=== PATIENT | female | born 1950 | race Caucasian/White ===

== ENCOUNTER 2020-05-22 12:49 | Outpatient (REF) | payer MEDICARE, SELFPAY ==
[2020-05-22 13:34] LABS: MANUAL DIFF FLAG NO
[2020-05-22 13:39] LABS: Basophils Percent Auto 0.4 % (0-2); Eosinophils Absolute Auto 0.1 X10*3/uL (0.0-0.4); Eosinophils Percent Auto 1.2 % (0-4); Hematocrit 40.4 % (37-47); Hemoglobin 12.7 g/dl (12.0-16.0); Imm Gran Abs Auto 0.02 X10*3/uL (0.00-0.03); Imm Gran Pct Auto 0.4 % (0.0-0.4); Lymphocytes Absolute Auto 1.6 X10*3/uL (1.2-4.9); Lymphocytes Percent Auto 32.3 % (20-40); Mean Corpuscular HGB Conc 31.4 g/dl (31.0-35.0); Mean Corpuscular Hemoglobin 27.2 pg (27.0-33.0); Mean Corpuscular Volume 86.5 fL (80-98); Mean Platelet Volume 11.3 fL (9.4-12.3); Monocytes Absolute Auto 0.5 X10*3/uL (0.1-1.2); Monocytes Percent Auto 10.3 % (2-11); Neutrophils Absolute Auto 2.7 X10*3/uL (2.0-8.3); Neutrophils Percent Auto 55.4 % (45-73); Platelet Count 253 X10*3/uL (160-400); Red Blood Count 4.67 X10*6/uL (4.20-5.50); Red Cell Distribution Width 12.6 % (11.0-16.0); White Blood Count 4.9 X10*3/uL (4.8-10.8)
[2020-05-22 14:40] LABS: Alanine Aminotransferase 14 U/L (0-31); Albumin Level 4.4 g/dL (3.5-5.0); Alkaline Phosphatase 69 U/L (39-117); Anion Gap 9 (12-20); Aspartate Amino Transferase 15 U/L (5-31); Bilirubin Total 1.1 mg/dL (0.0-1.0); Blood Urea Nitrogen 12 mg/dL (9-16); Calcium 9.1 mg/dL (8.4-10.2); Carbon Dioxide 30 mmol/L (22-29); Chloride 103 mmol/L (96-108); Cholesterol 186 mg/dL; Estimated Glomerular Filt Rate > 60; Glucose Random 87 mg/dL (60-115); HDL Cholesterol 50 mg/dL; LDL Cholesterol Calculated 119 mg/dl; Potassium 4.3 mmol/l (3.3-5.1); Sodium 138 mmol/L (135-145); Total Protein 7.1 g/dL (6.5-8.0); Triglycerides 86 mg/dL
[2020-05-22 14:45] LABS: Thyroid Stimulating Hormone 2.26 mIU/mL (0.32-4.0)
== END 2020-05-22 12:50 | disposition home or self-care (01) ==
LOC: HO.LAB 12:49
PROVIDERS: PCP Internal Medicine; Visit Provider Internal Medicine
DX: E78.00 Pure hypercholesterolemia, unspecified (principal); I10 Essential (primary) hypertension; Z91.14 Patient's other noncompliance with medication regimen
CPT/HCPCS: 36415; 80053; 80061; 84443; 85025

== ENCOUNTER 2020-07-26 10:57 | Outpatient (REF) | payer MEDICARE, SELFPAY ==
--- NOTE | 2020-07-26 | MM_ITS ---
EXAMINATION: MM SCREENING DIGITAL BREAST TOMOSYNTHESIS, BILATERAL CLINICAL INFORMATION: Screening. Asymptomatic. Prior history benign left excisional biopsy 2006. The lifetime risk of breast cancer based on the Tyrer-Cuzick Model is 3%. COMPARISON: Mammography: 07/20/2019, 07/13/2018, 05/24/2017 TECHNIQUE: Digital breast tomosynthesis is performed in both the craniocaudal and mediolateral oblique views along with computer-aided detection (CAD). Synthesized 2D images are generated from the tomosynthesis. FINDINGS: There are scattered areas of fibroglandular density (ACR BI-RADS breast composition Category b). There is old scarring left breast upper outer quadrant similar to prior studies consistent with the remote benign excisional biopsy. Neither breast shows interval mass or developing density or architectural abnormality. No abnormal calcifications. No significant changes from prior studies. MM/MM tomosynthesis screening BI IMPRESSION: 1. No significant changes from prior studies. 2. Stable minor scarring upper outer quadrant left breast. ASSESSMENT: BI-RADS 2: Benign RECOMMENDATION: Routine annual mammography screening. This patient's information was entered into a reminder system with a target due date for their next mammogram.
== END 2020-07-26 10:58 | disposition home or self-care (01) ==
LOC: HO.MAMMO 10:57
PROVIDERS: PCP Internal Medicine; Visit Provider Internal Medicine
DX: Z12.31 Encounter for screening mammogram for malignant neoplasm of breast (principal)
CPT/HCPCS: 77063; 77067

== ENCOUNTER 2020-07-29 17:02 | Outpatient (REF) | payer MEDICARE, SELFPAY | END 2020-07-29 17:03 | disposition home or self-care (01) | LOC: HO.LAB 17:02 | PROVIDERS: Visit Provider Internal Medicine | DX: Z20.828 Contact with and (suspected) exposure to other viral communicable diseases (principal) | CPT/HCPCS: C9803; U0003 ==

== ENCOUNTER 2020-11-15 11:23 | Outpatient (REF) | payer MEDICARE, SELFPAY ==
[2020-11-15 13:02] LABS: Alanine Aminotransferase 17 U/L (0-31); Albumin Level 4.4 g/dL (3.5-5.0); Alkaline Phosphatase 72 U/L (39-117); Anion Gap 11 (12-20); Aspartate Amino Transferase 20 U/L (5-31); Blood Urea Nitrogen 13 mg/dL (9-16); Calcium 9.1 mg/dL (8.4-10.2); Carbon Dioxide 32 mmol/L (22-29); Chloride 100 mmol/L (96-108); Estimated Glomerular Filt Rate > 60; Glucose Random 94 mg/dL (60-115); Potassium 4.2 mmol/L (3.3-5.1); Sodium 139 mmol/L (135-145); Total Protein 7.6 g/dL (6.5-8.0)
== END 2020-11-15 11:24 | disposition home or self-care (01) ==
LOC: HO.LAB 11:23
PROVIDERS: PCP Internal Medicine; Visit Provider Internal Medicine
DX: Z00.00 Encounter for general adult medical examination without abnormal findings (principal); E78.00 Pure hypercholesterolemia, unspecified; I10 Essential (primary) hypertension; M79.671 Pain in right foot
CPT/HCPCS: 36415; 80053

== ENCOUNTER 2020-11-15 11:55 | Outpatient (REF) | payer MEDICARE, SELFPAY ==
[2020-11-15 13:33] LABS: COVID-19 Test Negative (Negative); IDNOW Serial# 55D5AD1C
== END 2020-11-15 11:56 | disposition home or self-care (01) ==
LOC: HO.LAB 11:55
PROVIDERS: Visit Provider Internal Medicine
DX: Z20.822 Contact with and (suspected) exposure to COVID-19 (principal)
CPT/HCPCS: 36415; 87635; C9803

== ENCOUNTER 2020-11-22 13:11 | Outpatient (REF) | payer MEDICARE, SELFPAY ==
[2020-11-22 14:25] LABS: COVID-19 Test Negative (Negative); IDNOW Serial# 55D5AD1C
== END 2020-11-22 13:12 | disposition home or self-care (01) ==
LOC: HO.LAB 13:11
PROVIDERS: Visit Provider Internal Medicine
DX: Z20.822 Contact with and (suspected) exposure to COVID-19 (principal)
CPT/HCPCS: 36415; 87635; C9803

== ENCOUNTER 2020-12-10 15:24 | Outpatient (REF) | payer MEDICARE, SELFPAY ==
[2020-12-10 15:43] LABS: COVID-19 Test Negative (Negative)
== END 2020-12-10 15:25 | disposition home or self-care (01) ==
LOC: HO.LAB 15:24
PROVIDERS: Visit Provider Internal Medicine
DX: Z20.822 Contact with and (suspected) exposure to COVID-19 (principal)
CPT/HCPCS: 36415; 87635; C9803

== ENCOUNTER 2021-06-02 11:27 | Outpatient (REF) | payer MEDICARE, SELFPAY ==
[2021-06-02 11:48] LABS: MANUAL DIFF FLAG NO
[2021-06-02 12:56] LABS: Basophils Percent Auto 0.4 % (0-2); Eosinophils Absolute Auto 0.1 X10*3/uL (0.0-0.4); Eosinophils Percent Auto 1.6 % (0-4); Hematocrit 42.6 % (37-47); Hemoglobin 13.3 g/dl (12.0-16.0); Imm Gran Abs Auto 0.03 X10*3/uL (0.00-0.03); Imm Gran Pct Auto 0.6 % (0.0-0.4); Lymphocytes Absolute Auto 1.4 X10*3/uL (1.2-4.9); Lymphocytes Percent Auto 27.7 % (20-40); Mean Corpuscular HGB Conc 31.2 g/dl (31.0-35.0); Mean Corpuscular Hemoglobin 26.5 pg (27.0-33.0); Mean Platelet Volume 11.9 fL (9.4-12.3); Monocytes Absolute Auto 0.5 X10*3/uL (0.1-1.2); Monocytes Percent Auto 9.2 % (2-11); Neutrophils Absolute Auto 3.1 X10*3/uL (2.0-8.3); Neutrophils Percent Auto 60.5 % (45-73); Platelet Count 262 X10*3/uL (160-400); Red Blood Count 5.01 X10*6/uL (4.20-5.50); Red Cell Distribution Width 12.5 % (11.0-16.0); White Blood Count 5.1 X10*3/uL (4.8-10.8)
[2021-06-02 13:16] LABS: Cholesterol 206 mg/dL; HDL Cholesterol 48 mg/dL; LDL Cholesterol Calculated 141 mg/dl; Triglycerides 87 mg/dL
== END 2021-06-02 11:28 | disposition home or self-care (01) ==
LOC: HO.LAB 11:27
PROVIDERS: PCP Internal Medicine; Visit Provider Internal Medicine
DX: E78.00 Pure hypercholesterolemia, unspecified (principal); I10 Essential (primary) hypertension
CPT/HCPCS: 36415; 80061; 85025

== ENCOUNTER 2021-07-29 11:38 | Outpatient (REF) | payer MEDICARE, SELFPAY ==
--- NOTE | ~2021-07-29 | MM_ITS ---
EXAMINATION: MM SCREENING DIGITAL BREAST TOMOSYNTHESIS, BILATERAL CLINICAL INFORMATION: Screening. Asymptomatic. The lifetime risk of breast cancer based on the Tyrer-Cuzick Model is 2%. COMPARISON: Mammography: 07/26/2020, 07/20/2019, 07/13/2018, 05/24/2017 TECHNIQUE: Digital breast tomosynthesis is performed in both the craniocaudal and mediolateral oblique views along with computer-aided detection (CAD). Synthesized 2D images are generated from the tomosynthesis. FINDINGS: There are scattered areas of fibroglandular density (ACR BI-RADS breast composition Category b). There are no significant masses, abnormal calcifications, or other abnormalities. Scattered bilateral parenchymal asymmetries are stable. No developing density. The axilla and skin contours are unremarkable. MM/MM tomosynthesis screening BI IMPRESSION: No mammographic evidence of malignancy. ASSESSMENT: BI-RADS 2: Benign RECOMMENDATION: Routine annual mammography screening. This patient's information was entered into a reminder system with a target due date for their next mammogram.
== END 2021-07-29 11:39 | disposition home or self-care (01) ==
LOC: HO.MAMMO 11:38
PROVIDERS: PCP Internal Medicine; Visit Provider Internal Medicine
DX: Z12.31 Encounter for screening mammogram for malignant neoplasm of breast (principal)
CPT/HCPCS: 77063; 77067

== ENCOUNTER 2021-12-19 10:46 | Outpatient (REF) | payer OTHER, SELFPAY ==
[2021-12-19 12:14] LABS: Alanine Aminotransferase 36 U/L (0-31); Albumin Level 4.2 g/dL (3.5-5.0); Alkaline Phosphatase 90 U/L (39-117); Anion Gap 10 (12-20); Aspartate Amino Transferase 20 U/L (5-31); Bilirubin Total 1.4 mg/dL (0.0-1.0); Blood Urea Nitrogen 14 mg/dL (9-16); Calcium 9.5 mg/dL (8.4-10.2); Carbon Dioxide 29 mmol/L (22-29); Chloride 102 mmol/L (96-108); Cholesterol 123 mg/dL; Estimated Glomerular Filt Rate > 60; Glucose Random 92 mg/dL (60-115); HDL Cholesterol 49 mg/dL; LDL Cholesterol Calculated 61 mg/dl; Potassium 4.2 mmol/L (3.3-5.1); Sodium 137 mmol/L (135-145); Total Protein 7.4 g/dL (6.5-8.0); Triglycerides 67 mg/dL
== END 2021-12-19 10:47 | disposition home or self-care (01) ==
LOC: HO.LAB 10:46
PROVIDERS: PCP Internal Medicine; Visit Provider Internal Medicine
DX: E78.00 Pure hypercholesterolemia, unspecified (principal); I10 Essential (primary) hypertension; R09.81 Nasal congestion
CPT/HCPCS: 36415; 80053; 80061

== ENCOUNTER 2022-06-01 10:33 | Outpatient (REF) | payer OTHER, SELFPAY ==
[2022-06-01 10:46] LABS: MANUAL DIFF FLAG NO
[2022-06-01 11:44] LABS: Basophils Percent Auto 0.4 % (0-2); Eosinophils Absolute Auto 0.1 X10*3/uL (0.0-0.4); Eosinophils Percent Auto 1.1 % (0-4); Hematocrit 42.4 % (37.0-47.0); Hemoglobin 13.5 g/dl (12.0-16.0); Imm Gran Abs Auto 0.02 X10*3/uL (0.00-0.03); Imm Gran Pct Auto 0.4 % (0.0-0.4); Lymphocytes Absolute Auto 1.8 X10*3/uL (1.2-4.9); Lymphocytes Percent Auto 33.3 % (20-40); Mean Corpuscular HGB Conc 31.8 g/dl (31.0-35.0); Mean Corpuscular Hemoglobin 27.2 pg (27.0-33.0); Mean Corpuscular Volume 85.5 fL (80.0-98.0); Mean Platelet Volume 11.2 fL (9.4-12.3); Monocytes Absolute Auto 0.5 X10*3/uL (0.1-1.2); Neutrophils Percent Auto 55.8 % (45-73); Platelet Count 279 X10*3/uL (160-400); Red Blood Count 4.96 X10*6/uL (4.20-5.50); Red Cell Distribution Width 12.7 % (11.0-16.0); White Blood Count 5.3 X10*3/uL (4.8-10.8)
[2022-06-01 12:35] LABS: Vitamin D 25-OH Total 37.5 ng/mL (>30)
[2022-06-01 12:38] LABS: Alanine Aminotransferase 12 U/L (0-31); Albumin Level 4.4 g/dL (3.5-5.0); Alkaline Phosphatase 77 U/L (39-117); Anion Gap 16 (12-20); Aspartate Amino Transferase 20 U/L (5-31); Bilirubin Total 1.2 mg/dL (0.0-1.0); Blood Urea Nitrogen 10 mg/dL (9-16); Calcium 9.4 mg/dL (8.4-10.2); Carbon Dioxide 27 mmol/L (22-29); Chloride 100 mmol/L (96-108); Cholesterol 147 mg/dL; Estimated Glomerular Filt Rate > 60; Glucose Random 88 mg/dL (60-115); HDL Cholesterol 49 mg/dL; LDL Cholesterol Calculated 88 mg/dl; Potassium 4.1 mmol/L (3.3-5.1); Sodium 139 mmol/L (135-145); Total Protein 7.5 g/dL (6.5-8.0); Triglycerides 54 mg/dL
== END 2022-06-01 10:34 | disposition home or self-care (01) ==
LOC: HO.LAB 10:33
PROVIDERS: PCP Internal Medicine; Visit Provider Internal Medicine
DX: I10 Essential (primary) hypertension (principal); E78.00 Pure hypercholesterolemia, unspecified; M54.89 Other dorsalgia; R21 Rash and other nonspecific skin eruption
CPT/HCPCS: 36415; 80053; 80061; 82306; 85025

== ENCOUNTER 2022-08-05 11:52 | Outpatient (REF) | payer OTHER, SELFPAY ==
--- NOTE | ~2022-08-05 | MM_ITS ---
EXAMINATION: MM SCREENING DIGITAL BREAST TOMOSYNTHESIS, BILATERAL CLINICAL INFORMATION: Screening. Asymptomatic. The lifetime risk of breast cancer based on the Tyrer-Cuzick Model is 2.0%. COMPARISON: Mammography: July 29, 2021 and studies dating back to May 19, 2016 TECHNIQUE: Digital breast tomosynthesis is performed in both the craniocaudal and mediolateral oblique views along with computer-aided detection (CAD). Synthesized 2D images are generated from the tomosynthesis. FINDINGS: The breasts are heterogeneously dense, which may obscure small masses (ACR BI-RADS breast composition Category c). There are no new significant masses, abnormal calcifications, or other abnormalities. Postsurgical change again noted within the left breast. MM/MM tomosynthesis screening BI IMPRESSION: No significant changes from prior exam. ASSESSMENT: BI-RADS 2: Benign RECOMMENDATION: Routine annual mammography screening. This patient's information was entered into a reminder system with a target due date for their next mammogram.
== END 2022-08-05 11:53 | disposition home or self-care (01) ==
LOC: HO.MAMMO 11:52
PROVIDERS: PCP Internal Medicine; Visit Provider Internal Medicine
DX: Z12.31 Encounter for screening mammogram for malignant neoplasm of breast (principal)
CPT/HCPCS: 77063; 77067

== ENCOUNTER 2022-12-01 10:40 | Outpatient (REF) | payer OTHER, SELFPAY ==
[2022-12-01 12:25] LABS: Alanine Aminotransferase 11 U/L (0-31); Albumin Level 4.1 g/dL (3.5-5.0); Alkaline Phosphatase 74 U/L (39-117); Anion Gap 14 (12-20); Aspartate Amino Transferase 15 U/L (5-31); Bilirubin Total 1.3 mg/dL (0.0-1.0); Blood Urea Nitrogen 11 mg/dL (9-16); Calcium 9.1 mg/dL (8.4-10.2); Carbon Dioxide 27 mmol/L (22-29); Chloride 104 mmol/L (96-108); Estimated Glomerular Filt Rate > 60; Glucose Random 92 mg/dL (60-115); Potassium 4.3 mmol/L (3.3-5.1); Sodium 141 mmol/L (135-145); Total Protein 7.2 g/dL (6.5-8.0)
== END 2022-12-01 10:41 | disposition home or self-care (01) ==
LOC: HO.LAB 10:40
PROVIDERS: PCP Internal Medicine; Visit Provider Internal Medicine
DX: Z00.00 Encounter for general adult medical examination without abnormal findings (principal); E78.00 Pure hypercholesterolemia, unspecified; I10 Essential (primary) hypertension; R21 Rash and other nonspecific skin eruption
CPT/HCPCS: 36415; 80053

== ENCOUNTER 2023-05-06 10:45 | Outpatient (AMB) | payer OTHER, SELFPAY ==
--- NOTE | 2023-05-06 10:52 | A.OFFVIS_ITS ---
Intake Vital Signs 05/06/23 10:57 Height 4 ft 10 in Weight 149 lb BMI 31.1 BP 141/64 H Blood Pressure Location Lt brachial Position Sitting Pulse 58 Intake Visit Reasons: pre colonoscopy screening Intake Note: Patient new consult for 5th pre colonoscopy screening/ Dr. Robert former patient ( ECW ) Patient denies any GI issues. Nuclear Station Operator Required: No Accompanied by: Self / Same As Patient Allergies No Known Allergies Allergy (Verified 05/06/23 10:51) Medication List - Last Reconciled 05/06/23 by Vidal Calderon MD ibuprofen 600 mg PO TID losartan-hydrochlorothiazide 100-25 mg 1 tab PO DAILY rosuvastatin 20 mg PO BEDTIME triamcinolone acetonide 0.5% appl topical HPI pre colonoscopy screening HPI Details GI clinic visit for this 73 YF with a history of colon polyps to schedule follow-up colonoscopy LABS IN [facility]: reviewed ENDOSCOPIC STUDIES: 09/2017: Colonoscopy was performed by Dr Jaylen Robert: In the appendiceal area, there was a texture change. This area was biopsied. No true polyp was seen. The scope was slowly withdrawn. There were 2 polyps identified in the range of 60 cm felt to be in the descending colon, just below the splenic flexure. These were removed excisionally with the cold biopsy forceps. The larger one had slight oozing. Reapposed the edges of the polypectomy site with a resolution clip. The scope continually withdrawn. Anorectal verge was clear. BIOPSIES SHOWED: A. Colon mucosa with a benign intramucosal lymphoid aggregate. B. Tubular adenomas 01/15/2009 - 2 tubular adenomas were remov ed 04/02/2011 - 2 tubular adenomas were chin rachelle 05/2014 1 diminutive tubular adenomas re moved TODAY'S VISIT: Patient denies symptoms of heartburn, dysphagia, nausea, vomiting, change in appetite or weight. Notes post nasal drip due to sinusitis. Denies recent change in bowel habits, constipation, diarrhea, black stools or rectal bleeding. Notes rectal discomfort due to prolapsed hemorrhoids. Patient denies major cardiac or pulmonary problems, loud snoring or sleep apnea Denies problems with anesthesia in the past. Denies being on chronic anticoagulation. Uses aspirin once in a while for fibromyalgia Patient denies history of smoking On disabilty and lives alone Has four children, 13 GK and 19 GGK Patient denies known family history of colon polyps, colon cancer or other GI malignancies. Dad had renal cancer, mom had hypertension, diabetes and hyperlipidemia. PAST GI HISTORY BY REVIEW OF MEDICAL RECORDS: 07/2017 pt was seen by Dr. Robert: High risk colon cancer screening--Hx of multiple tubular adenomas. Patient has been healthy. She does admit to a lot of family stressors. Her has also developed a heart problem. She has no GI complaints. She moves her bowels regularly. She has no pains. She has no bleeding. PFSH Surgical History (Updated 05/06/23 @ 10:54 by Sylvia Tamez) Hx of tonsillectomy Hx of section Hx of hysterectomy Hx of tubal ligation Social History (Updated 05/06/23 @ 10:52 by Sylvia Tamez) Household Members: None Alcohol intake: never Patient Tobacco Use Status: Never used Tobacco Review of Systems Const Denies fever(s), Denies headache(s) and Denies weight loss Eyes Denies eye discharge and Denies irritation ENT Reports Normal hearing present, Denies dysphagia, Denies dizziness and Denies headache(s) Card Denies chest pain, Denies leg edema and Denies dyspnea on exertion Resp Denies cough, Denies dyspnea on exertion and Denies wheezing GI Denies abdominal pain, Denies change in bowel habits, Denies dysphagia and Denies heartburn Denies difficulty voiding and Denies dysuria Musc Denies back pain and Reports arthralgias Skin/Breast Denies pruritus, Reports rash (due to eczema) and Denies jaundice Neuro Reports Normal hearing present, Denies Abnormal speech present, Denies dizziness, Denies headache(s) and Denies seizure-like activity Psych Denies anxiety, Denies depression and Denies panic attacks Endo Denies cold intolerance, Denies flushing and Denies heat intolerance Harris/Lymph Denies easy bleeding and Denies easy bruising Aller/Immun Denies wheezing Physical Exam Const General: healthy appearing and no acute distress Nutritional Appearance: obese Orientation/consciousness: patient oriented x3 Limitations: no limitations HEENT Head: Yes normal to inspection Ears: hearing grossly normal bilaterally Eyes Sclerae: sclerae normal Pupils: Equal, round and reactive pupils present Neck Neck: Yes normal visual inspection Chest Chest palpation & inspection: normal inspection of the chest Resp Effort & Inspection: normal respiratory effort Auscultation: clear to auscultation bilaterally Cardio Palpation: normal PMI Rate: regular rate Rhythm: regular rhythm Heart sounds: S1 normal heart sound present, S2 normal heart sound present and no murmurs GI Palpation (GI): Soft to palpation, nontender and No hepatosplenomegaly present Auscultation: normal bowel sounds Rectal Exam - Female: deferred Skin Rashes: rashes noted (maculopapular rash over anterior neck - due to eczema) Neuro General: patient oriented x3, gait normal and moves all extremities Cranial nerves: Yes Equal, round and reactive pupils present and Yes Normal hearing present Speech: No Abnormal speech present Psych Appearance: grossly normal Mental Status: mental status grossly normal Assessment & Plan Assessment & Plan (1) History of adenomatous polyp of colon: Code(s): Z86.010 - Personal history of colonic polyps (2) Hemorrhoids that prolapse with straining and require manual replacement back inside anal canal: Code(s): K64.2 - Third degree hemorrhoids Plan 73 YF with a history of colon polyps to schedule follow-up colonoscopy Last colonoscopy was performed by Dr Robert in 07/2018 and a 5 yr FU was advised. Patient will be scheduled for colonoscopy for surveillance for colon polyps She was prescribed hydrocortisone cream for hemorrhoids. Follow-up appointment in 3 months. Medications: New hydrocortisone 2.5% 1 appl DE BID-QID PRN 30 grams 0RF hemorrhoids 30 days K64.2 - Third degree hemorrhoids bisacodyl (Dulcolax (bisacodyl)) Take 2 tablets at 12 pm daily starting 2 days before colonoscopy appointment 10 mg (2 x 5 mg) PO ONCE 2 days 4 tabs 0RF colon prep polyethylene glycol 3350 (Miralax) Mix Miralax with 64 oz(8 cups) of Crystal light. Take 2 tablets of Dulcolax qt 12 pm. Wait to have your 1st bowel movement, then begin drinking Miralax. Drink a glass of Miralax every 10-15 minutes until you are finished. You will drink at least another 4 cups of clear liquid of your choice over the next 2 hours. Please drink as many clear liquids as possible You may have clear liquids up to four hours before your procedure 17 grams PO DAILY 238 grams 0RF 1 day Coding Level of Care Code New Pt Level 4 (68843) Diagnoses History of adenomatous polyp of colon Z86.010 Hemorrhoids that prolapse with straining and require manual replacement back inside anal canal K64.2 Time Spent (min) 25
[2023-05-06 10:57] VITALS: BP 141/64; PULSE 58; BMI 31.1
== END 2023-05-06 12:35 | disposition home or self-care (01) ==
PROVIDERS: Visit Provider Internal Medicine Gastroenterology
DX: Z01.818 Encounter for other preprocedural examination (principal); Z12.11 Encounter for screening for malignant neoplasm of colon; Z86.010 Personal history of colon polyps; Z80.0 Family history of malignant neoplasm of digestive organs
CPT/HCPCS: 99203

== ENCOUNTER → 2023-05-06 10:45 | Outpatient (BNVA) | payer OTHER, SELFPAY | PROVIDERS: Visit Provider Internal Medicine Gastroenterology ==

== ENCOUNTER 2023-05-27 10:04 | Outpatient (REF) | payer OTHER, SELFPAY ==
[2023-05-27 10:29] LABS: MANUAL DIFF FLAG NO
[2023-05-27 10:51] LABS: Basophils Percent Auto 0.2 % (0-2); Eosinophils Absolute Auto 0.3 X10*3/uL (0.0-0.4); Eosinophils Percent Auto 3.9 % (0-4); Hematocrit 42.2 % (37.0-47.0); Hemoglobin 13.4 g/dl (12.0-16.0); Imm Gran Abs Auto 0.03 X10*3/uL (0.00-0.03); Imm Gran Pct Auto 0.5 % (0.0-0.4); Lymphocytes Absolute Auto 1.6 X10*3/uL (1.2-4.9); Mean Corpuscular HGB Conc 31.8 g/dl (31.0-35.0); Mean Corpuscular Hemoglobin 26.6 pg (27.0-33.0); Mean Corpuscular Volume 83.7 fL (80.0-98.0); Monocytes Absolute Auto 0.6 X10*3/uL (0.1-1.2); Neutrophils Absolute Auto 3.9 x10*3/uL (2.0-8.3); Neutrophils Percent Auto 60.4 % (45-73); Platelet Count 291 X10*3/uL (160-400); Red Blood Count 5.04 X10*6/uL (4.20-5.50); Red Cell Distribution Width 12.7 % (11.0-16.0); White Blood Count 6.4 X10*3/uL (4.8-10.8)
[2023-05-27 12:32] LABS: Alanine Aminotransferase 13 U/L (0-31); Albumin Level 4.1 g/dL (3.5-5.0); Alkaline Phosphatase 78 U/L (39-117); Anion Gap 14 (12-20); Aspartate Amino Transferase 17 U/L (5-31); Bilirubin Total 0.9 mg/dL (0.0-1.0); Blood Urea Nitrogen 11 mg/dL (9-16); Calcium 9.5 mg/dL (8.4-10.2); Carbon Dioxide 28 mmol/L (22-29); Chloride 99 mmol/L (96-108); Cholesterol 182 mg/dL (<200); Estimated Glomerular Filt Rate > 60; Glucose Random 90 mg/dL (60-115); HDL Cholesterol 47 mg/dL (>40); LDL Cholesterol Calculated 116 mg/dL (<100); Potassium 3.5 mmol/L (3.3-5.1); Sodium 137 mmol/L (135-145); Thyroid Stimulating Hormone 4.42 uIU/mL (0.32-4.0); Total Protein 7.9 g/dL (6.5-8.0); Triglycerides 99 mg/dL (<150)
== END 2023-05-27 10:05 | disposition home or self-care (01) ==
LOC: HO.LAB 10:04
PROVIDERS: PCP Internal Medicine; Visit Provider Internal Medicine
DX: E78.00 Pure hypercholesterolemia, unspecified (principal); I10 Essential (primary) hypertension; R21 Rash and other nonspecific skin eruption
CPT/HCPCS: 36415; 80053; 80061; 84443; 85025

== ENCOUNTER 2023-07-30 08:02 | Day surgery (SDC) | payer OTHER, SELFPAY ==
[2023-07-28 15:15] VITALS: BMI 31.1
[2023-07-28 15:34] VITALS: BMI 30.7
--- NOTE | 2023-07-29 12:35 | HO.ANESPROP2 ---
HPI - Anesthesia Eval Consult details Narrative: 73yo F for Colonoscopy PMFSH Active Problems Active Problems: All Active Problems (Updated 07/28/23 @ 15:36 by Julissa Puente RN) Hemorrhoids that prolapse with straining and require manual replacement back inside anal canal (Acute) Eczema (Acute) History of adenomatous polyp of colon (Acute) Hypertension (Acute) Past Medical History Medical History (Updated 08/12/23 @ 10:43 by Vidal Calderon MD) Hx of cardiac murmur Fibromyalgia Elevated cholesterol HTN (hypertension) Surgical History Surgical History Hx of colonoscopy Hx of tonsillectomy Hx of section Hx of hysterectomy Hx of tubal ligation Social History Social History Household Members: None Housing: Apartment Are you a primary rn transitional care to a significant other at home: No Do you presently have 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) Alcohol intake: never Patient Tobacco Use Status: Never used Tobacco Meds Allergies Allergy/AdvReac Type Severity Reaction Status Date / Time No Known Allergies Allergy Verified 08/12/23 10:18 Home Medications Medication Instructions Recorded Confirmed Last Taken Type ibuprofen 600 mg tablet 600 mg PO TID PRN Pain 05/06/23 08/12/23 07/23/23 History triamcinolone acetonide 0.5 % appl topical 05/06/23 08/12/23 Unknown History topical cream clonazepam 1 mg tablet 1 mg PO DAILY PRN Anxiety 07/28/23 08/12/23 Unknown History losartan 100 mg tablet 100 mg PO DAILY 07/28/23 08/12/23 Unknown History Exam Height,Weight and Vital Signs: Height 4 ft 10 in Weight 66.678 kg Pertinent Lab Results Pertinent Lab Results: Laboratory Tests 05/27/23 10:28 WBC 6.4 Hgb 13.4 Hct 42.2 Plt Count 291 Sodium 137 Potassium 3.5 Chloride 99 Carbon Dioxide 28 BUN 11 Creatinine 0.67 Assessment and Plan Assessment Anesthesia Assessment: Chart Reviewed
[2023-07-30 08:31] VITALS: BP 159/69; PULSE 75; RESP 16; TEMP 36.2; O2SAT 97
[2023-07-30] MEDS: Lactated Ringers 1,000 ML 100 ML IVCONT (08:32)
--- NOTE | 2023-07-30 09:20 | MHC.SHP ---
Pre-Procedural Eval Section A Date of Service: 07/30/23 The patient is an INPATIENT: No The History & Physical has been completed within 30 days and I have reviewed it.: No Section B Chief Complaint: Surveillance for colon polyps Relevant Family History (Specify if Yes): No Relevant Social History: None Present Medications: see Short Stay Collaborative assessment Medical History: Significant History (Hypertension, elevated cholesterol, fibromyalgia) History of Previous Operations: Relevant previous surgery/procedure and date(s) (Hx of tonsillectomy Hx of section Hx of hysterectomy Hx of tubal ligation) Allergies: Allergies Allergy/AdvReac Type Severity Reaction Status Date / Time No Known Allergies Allergy Verified 07/30/23 08:14 Review of Systems Sugical H&P ROS: Negative: Constitution, Cardiovascular, Respiratory and Gastrointestinal Exam Surgical H&P Exam: Normal: Heart, Normal: Lungs, Normal: Extremities and Normal: Abdomen Plan Diagnosis/Plan: Unchanged I have reviewed the history and physical and performed a pertinent physical examination on my patient. No changes have occurred unless specified. Time Spent With Patient Time: Total time managing care of this patient today ____ minutes.
--- NOTE | 2023-07-30 10:01 | W.PM.OPN ---
Operative Note Operative Note Date of Service: 07/30/23 Narrative: COLONOSCOPY TILL CECUM WITH SNARE POLYPECTOMY Pre-op diagnosis: Surveillance for colon polyps Post-op diagnosis:? Colon polyps, diverticulosis, hemorrhoids Endoscopist:? Vidal Calderon MD Anesthesia:?MAC Consent: Indications for the procedure and potential complications of bleeding, perforation, reaction to medications and missed diagnosis were discussed with the patient and informed consent was obtained. Instrument: Olympus PCF H 190 L variable stiffness pediatric colonoscope Monitoring: Vital signs and clinical assessment, intermittent blood pressure monitoring, continuous EKG monitoring, Pulse oximetry and Carbon Dioxide monitoring were done throughout the procedure. Please see anesthesia flowsheet. Colon withdrawl time was 14 minutes. Procedure: The patient was placed in the left lateral decubitis position and pre-procedure medications were administered. After a digital rectal examination of the ano-rectum, the video colonoscope was inserted into the rectum and advanced through the colon to the cecum. The colonoscope was slowly withdrawn in a retrograde panoramic fashion and the colon mucosa was carefully examined including a retroflexed view of the rectum. Findings and interventions are described below. Procedure Difficulty: Without difficulty Findings: Terminal Ileum: Not evaluated Cecum: Normal Ascending Colon: Moderate diverticulosis throughout the entire colon Transverse Colon: A 7-8 mm sessile polyp in the proximal TC /hepatic flexure -removed with a cold snare. Moderate diverticulosis throughout the entire colon Descending Colon: Moderate diverticulosis throughout the entire colon Sigmoid Colon: Severe diverticulosis with luminal narrowing Rectum: Normal Ano-rectum: Small internal hemorrhoids Colon preparation: Excellent [facility] Bowel Preparation Scale Right colon; 3 Transverse colon: 3 Left colon; 3 (0 = Unprepared colon segment with mucosa not seen due to solid stool that cannot be cleared. 1 = Portion of mucosa of the colon segment seen, but other areas of the colon segment not well seen due to staining, residual stool and/or opaque liquid. 2 = Minor amount of residual staining, small fragments of stool and/or opaque liquid, but mucosa of colon segment seen well. 3 = Entire mucosa of colon segment seen well with no residual staining, small fragments of stool or opaque liquid) Impression and Post Procedure Diagnosis: Colonoscopy Findings: One small polyp removed Moderate diverticulosis seen in the entire colon Small hemorrhoids on retroflexed exam. Plan: Await pathology results Patient has an appointment on 08/12/23 in the GI Clinic with Vidal Calderon M.D. Repeat Colonoscopy interval based on path results - in 5 years if polyps are adenomatous and due to a history of adenomatous colon polyps. Above findings were reviewed with the patient and colon polyps and diverticulosis handouts were given in the discharge area
[2023-07-30 10:07] VITALS: BP 110/51; PULSE 65; RESP 15; TEMP 36.8; O2SAT 98
[2023-07-30 10:22] VITALS: BP 142/54; PULSE 52; RESP 18; TEMP 36.9; O2SAT 98
== END 2023-07-30 10:40 | disposition home or self-care (01) ==
PROVIDERS: PCP Internal Medicine; Visit Provider Internal Medicine Gastroenterology
PROC: 0DJD8ZZ Inspection of Lower Intestinal Tract, Via Natural or Artificial Opening Endoscopic (ICD-10-PCS; CPT 45378; principal; 2023-07-30 10:20)
DX: Z12.11 Encounter for screening for malignant neoplasm of colon (principal); Z86.010 Personal history of colon polyps; D12.3 Benign neoplasm of transverse colon; K57.30 Diverticulosis of large intestine without perforation or abscess without bleeding; K64.2 Third degree hemorrhoids; I10 Essential (primary) hypertension; M79.7 Fibromyalgia; E78.00 Pure hypercholesterolemia, unspecified; Z79.1 Long term (current) use of non-steroidal anti-inflammatories (NSAID); Z79.899 Other long term (current) drug therapy; Z90.710 Acquired absence of both cervix and uterus
CPT/HCPCS: 45385; 88305; J2704

== ENCOUNTER → 2023-07-30 08:02 | Outpatient (BNV) | payer OTHER, SELFPAY | PROVIDERS: PCP Internal Medicine; Visit Provider Internal Medicine Gastroenterology | DX: Z12.11 Encounter for screening for malignant neoplasm of colon (principal); D12.3 Benign neoplasm of transverse colon; K57.30 Diverticulosis of large intestine without perforation or abscess without bleeding; K64.8 Other hemorrhoids | CPT/HCPCS: 45385 ==

== ENCOUNTER 2023-08-11 11:28 | Outpatient (REF) | payer OTHER, SELFPAY ==
--- NOTE | ~2023-08-11 | MM_ITS ---
EXAMINATION: MM SCREENING DIGITAL BREAST TOMOSYNTHESIS, BILATERAL CLINICAL INFORMATION: Screening. Asymptomatic. History of left breast excisional biopsy, 2006, benign. COMPARISON: Mammography: 07/29/2021, 07/26/2020, 07/20/2019, 07/13/2018, 05/24/2017 TECHNIQUE: Digital breast tomosynthesis is performed in both the craniocaudal and mediolateral oblique views along with computer-aided detection (CAD). Synthesized 2D images are generated from the tomosynthesis. FINDINGS: The breasts are heterogeneously dense, which may obscure small masses (ACR BI-RADS breast composition Category c). Mild distortion in the 12:00 axis left breast is consistent with post excisional biopsy scarring. There are no suspicious masses, suspicious grouped calcifications, or developing areas of architectural distortion in either breast. The parenchymal pattern is stable from prior exams. There are no skin or axillary abnormalities. MM/MM tomosynthesis screening BI IMPRESSION: No mammographic evidence of malignancy. ASSESSMENT: BI-RADS BI-RADS 2 - Benign Findings RECOMMENDATION: Routine annual mammography screening. 1 year F/U This examination should not preclude the clinical evaluation of a suspicious palpable abnormality. This patient's information was entered into a reminder system with a target due date for their next mammogram.
== END 2023-08-11 11:29 | disposition home or self-care (01) ==
LOC: HO.MAMMO 11:28
PROVIDERS: PCP Internal Medicine; Visit Provider Internal Medicine
DX: Z12.31 Encounter for screening mammogram for malignant neoplasm of breast (principal)
CPT/HCPCS: 77063; 77067

== ENCOUNTER → 2023-08-11 11:45 | Outpatient (BNV) | payer OTHER, SELFPAY | PROVIDERS: PCP Internal Medicine; Visit Provider Radiology Diagnostic Radiology | DX: Z12.31 Encounter for screening mammogram for malignant neoplasm of breast (principal) | CPT/HCPCS: 77063; 77067 ==

== ENCOUNTER 2023-08-12 10:14 | Outpatient (AMB) | payer OTHER, SELFPAY ==
--- NOTE | 2023-08-12 10:18 | MHC.OFFVIS ---
Intake Vital Signs 08/12/23 10:20 Height 4 ft 10 in Weight 150 lb BMI 31.3 BP 142/64 H Blood Pressure Location Lt brachial Position Sitting Pulse 63 Intake Visit Reasons: S/P [place]; Dr. Calderon Intake Note: Patient follow up for Colonoscopy results. Patient denies any GI issues. Filleter Required: No Accompanied by: Self / Same As Patient Allergies No Known Allergies Allergy (Verified 08/12/23 10:18) Medication List - Last Reconciled 08/12/23 by Vidal Calderon MD clonazepam 1 mg PO DAILY PRN hydrocortisone 2.5% 1 appl [place] BID-QID PRN 30 days ibuprofen 600 mg PO TID PRN losartan 100 mg PO DAILY triamcinolone acetonide 0.5% appl topical HPI S/P [place]; Dr. Calderon HPI Details GI clinic visit for this 73 YF with a history of colon polyps to discuss colonoscopy results LABS IN [facility]: reviewed ENDOSCOPIC STUDIES: 07/30/23 COLONOSCOPY SHOWED: One small tubular adenoma was removed Moderate diverticulosis seen in the entire colon Small hemorrhoids on retroflexed exam. Plan: Repeat Colonoscopy interval based on path results - in 5 years if polyps are adenomatous and due to a history of adenomatous colon polyps 09/2017: Colonoscopy was performed by Dr. Robert:In the appendiceal area, there was a texture change. This area was biopsied. No true polyp was seen. The scope was slowly withdrawn. There were 2 polyps identified in the range of 60 cm felt to be in the descending colon, just below the splenic flexure. These were removed excisionally with the cold biopsy forceps. The larger one had slight oozing. Reapposed the edges of the polypectomy site with a resolution clip. The scope continually withdrawn. Anorectal verge was clear. BIOPSIES SHOWED: A. Colon mucosa with a benign intramucosal lymphoid aggregate. B. Tubular adenomas 01/15/2009 - 2 tubular adenomas were removed 04/02/2011 - 2 tubular adenomas were removed 05/2014 1 diminutive tubular adenomas removed TODAY'S VISIT: Colonoscopy results were reviewed with the patient She denies known family hx of colon polyps or cancer. Pt states she has changed to a more healthy diet - takes vegetables, beans and white meat. Patient complains of postprandial bloating - usually takes oatmeal, eggs and coffee and sometimes pancakes for breakfast PAST VISITS: Patient denies symptoms of heartburn, dysphagia, nausea, vomiting, change in appetite or weight. Notes post nasal drip due to sinusitis. Denies recent change in bowel habits, constipation, diarrhea, black stools or rectal bleeding. Notes rectal discomfort due to prolapsed hemorrhoids. Patient denies major cardiac or pulmonary problems, loud snoring or sleep apnea Denies problems with anesthesia in the past. Denies being on chronic anticoagulation. Uses aspirin once in a while for fibromyalgia Patient denies history of smoking On disabilty and lives alone Has four children, 13 GK and 19 GGK Patient denies known family history of colon polyps, colon cancer or other GI malignancies. Dad had renal cancer, mom had hypertension, diabetes and hyperlipidemia. PAST GI HISTORY BY REVIEW OF MEDICAL RECORDS: 07/2017 pt was seen by Dr. Robert:High risk colon cancer screening--Hx of multiple tubular adenomas. Patient has been healthy. She does admit to a lot of family stressors. Her has also developed a heart problem. She has no GI complaints. She moves her bowels regularly. She has no pains. 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) Alcohol intake: never Patient Tobacco Use Status: Never used Tobacco Review of Systems Const All systems reviewed & are unremarkable except as noted in HPI and below Physical Exam Const General: healthy appearing and no acute distress Nutritional Appearance: obese Orientation/consciousness: patient oriented x3 Limitations: no limitations HEENT Head: Yes normal to inspection Ears: hearing grossly normal bilaterally Eyes Sclerae: sclerae normal Pupils: Equal, round and reactive pupils present Neck Neck: Yes normal visual inspection Chest Chest palpation & inspection: normal inspection of the chest Resp Effort & Inspection: normal respiratory effort Auscultation: clear to auscultation bilaterally Cardio Palpation: normal PMI Rate: regular rate Rhythm: regular rhythm Heart sounds: S1 normal heart sound present, S2 normal heart sound present and no murmurs GI Palpation (GI): Soft to palpation, nontender and No hepatosplenomegaly present Auscultation: normal bowel sounds Rectal Exam - Female: deferred Skin General skin exam: no rashes or lesions noted Neuro General: patient oriented x3, gait normal and moves all extremities Cranial nerves: Yes Equal, round and reactive pupils present Psych Appearance: grossly normal Mental Status: mental status grossly normal Assessment & Plan Assessment & Plan (1) Hemorrhoids that prolapse with straining and require manual replacement back inside anal canal: Code(s): K64.2 - Third degree hemorrhoids (2) History of adenomatous polyp of colon: Comment: 07/30/23 colonoscopy showed diverticulosis and a small tubular adenoma was removed Repeat colonoscopy was advised in 5 years (due 07/2028) Code(s): Z86.010 - Personal history of colonic polyps (3) Postprandial abdominal bloating: Code(s): R14.0 - Abdominal distension (gaseous) Plan 73 YF with a history of colon polyps here to discuss colonoscopy results Last colonoscopy was performed by Dr Robert in 07/2018 and a 5 yr FU was advised. She was prescribed hydrocortisone cream for hemorrhoids. 07/30/23 colonoscopy showed diverticulosis and a small tubular adenoma was removed Repeat colonoscopy was advised in 5 years (due 07/2028) 08/12/23 Patient complains of postprandial bloating - usually takes oatmeal, eggs and coffee and sometimes pancakes for breakfast Patient was advised to start probiotics daily (pt reports taking Activia yogurt and Kumbucha) Follow-up appointment in 4 months. Medications: New Lactobacillus rhamnosus GG (Culturelle) 1 cap PO DAILY 30 days 30 caps 3RF R14.0 - Abdominal distension (gaseous) Coding Level of Care Code Est Pt Level 4 (48907) Diagnoses Hemorrhoids that prolapse with straining and require manual replacement back inside anal canal K64.2 History of adenomatous polyp of colon Z86.010 Postprandial abdominal bloating R14.0 Time Spent (min) 21
[2023-08-12 10:20] VITALS: BP 142/64; PULSE 63; BMI 31.3
== END 2023-08-12 10:47 | disposition home or self-care (01) ==
PROVIDERS: PCP Internal Medicine; Visit Provider Internal Medicine Gastroenterology
DX: K64.2 Third degree hemorrhoids (principal); Z86.010 Personal history of colon polyps; R14.0 Abdominal distension (gaseous)
CPT/HCPCS: 99214

== ENCOUNTER → 2023-08-12 10:14 | Outpatient (BNVA) | payer OTHER, SELFPAY | PROVIDERS: PCP Internal Medicine; Visit Provider Internal Medicine Gastroenterology | DX: K64.2 Third degree hemorrhoids (principal); R14.0 Abdominal distension (gaseous); Z86.010 Personal history of colon polyps | CPT/HCPCS: 99212 ==

== ENCOUNTER 2024-02-11 11:27 | Outpatient (REF) | payer OTHER, SELFPAY ==
[2024-02-11 11:45] LABS: MANUAL DIFF FLAG NO
[2024-02-11 13:42] LABS: Basophils Percent Auto 0.4 % (0-2); Eosinophils Absolute Auto 0.1 X10*3/uL (0.0-0.4); Eosinophils Percent Auto 1.9 % (0-4); Hematocrit 42.4 % (37.0-47.0); Hemoglobin 13.4 g/dl (12.0-16.0); Imm Gran Abs Auto 0.01 X10*3/uL (0.00-0.03); Imm Gran Pct Auto 0.2 % (0.0-0.4); Lymphocytes Absolute Auto 1.4 X10*3/uL (1.2-4.9); Lymphocytes Percent Auto 27.5 % (20-40); Mean Corpuscular HGB Conc 31.6 g/dl (31.0-35.0); Mean Corpuscular Hemoglobin 26.7 pg (27.0-33.0); Mean Corpuscular Volume 84.6 fL (80.0-98.0); Mean Platelet Volume 11.6 fL (9.4-12.3); Monocytes Absolute Auto 0.4 X10*3/uL (0.1-1.2); Monocytes Percent Auto 8.5 % (2-11); Neutrophils Absolute Auto 3.2 x10*3/uL (2.0-8.3); Neutrophils Percent Auto 61.5 % (45-73); Platelet Count 250 X10*3/uL (160-400); Red Blood Count 5.01 X10*6/uL (4.20-5.50); Red Cell Distribution Width 12.7 % (11.0-16.0); White Blood Count 5.2 X10*3/uL (4.8-10.8)
[2024-02-11 14:00] LABS: Alanine Aminotransferase 13 U/L (0-31); Albumin Level 4.2 g/dL (3.5-5.0); Alkaline Phosphatase 70 U/L (39-117); Anion Gap 11 (12-20); Aspartate Amino Transferase 19 U/L (5-31); Bilirubin Total 0.9 mg/dL (0.0-1.0); Blood Urea Nitrogen 10 mg/dL (9-16); Calcium 9.4 mg/dL (8.4-10.2); Carbon Dioxide 27 mmol/L (22-29); Chloride 105 mmol/L (96-108); Cholesterol 198 mg/dL (<200); Estimated Glomerular Filt Rate > 60; Glucose Random 84 mg/dL (60-115); HDL Cholesterol 50 mg/dL (>40); LDL Cholesterol Calculated 134 mg/dL (<100); Potassium 4.4 mmol/L (3.3-5.1); Sodium 139 mmol/L (135-145); Total Protein 7.8 g/dL (6.5-8.0); Triglycerides 71 mg/dL (<150)
[2024-02-11 14:15] LABS: Thyroid Stimulating Hormone 2.89 uIU/mL (0.32-4.0)
== END 2024-02-11 11:28 | disposition home or self-care (01) ==
LOC: HO.LAB 11:27
PROVIDERS: Visit Provider Internal Medicine
DX: F32.9 Major depressive disorder, single episode, unspecified (principal); F41.9 Anxiety disorder, unspecified; M23.91 Unspecified internal derangement of right knee; Z86.010 Personal history of colon polyps
CPT/HCPCS: 36415; 80053; 80061; 84443; 85025

== ENCOUNTER 2024-08-11 11:18 | Outpatient (REF) | payer OTHER, SELFPAY ==
[2024-08-11 11:40] LABS: MANUAL DIFF FLAG NO
[2024-08-11 12:31] LABS: Basophils Percent Auto 0.5 % (0-2); Eosinophils Absolute Auto 0.1 X10*3/uL (0.0-0.4); Eosinophils Percent Auto 2.2 % (0-4); Hematocrit 40.4 % (37.0-47.0); Hemoglobin 12.9 g/dl (12.0-16.0); Imm Gran Abs Auto 0.01 X10*3/uL (0.00-0.03); Imm Gran Pct Auto 0.2 % (0.0-0.4); Lymphocytes Absolute Auto 1.7 X10*3/uL (1.2-4.9); Lymphocytes Percent Auto 28.3 % (20-40); Mean Corpuscular HGB Conc 31.9 g/dl (31.0-35.0); Mean Corpuscular Hemoglobin 27.2 pg (27.0-33.0); Mean Corpuscular Volume 85.1 fL (80.0-98.0); Mean Platelet Volume 11.1 fL (9.4-12.3); Monocytes Absolute Auto 0.5 X10*3/uL (0.1-1.2); Neutrophils Absolute Auto 3.6 x10*3/uL (2.0-8.3); Neutrophils Percent Auto 59.8 % (45-73); Platelet Count 284 X10*3/uL (160-400); Red Blood Count 4.75 X10*6/uL (4.20-5.50); Red Cell Distribution Width 12.8 % (11.0-16.0)
[2024-08-11 13:07] LABS: Alanine Aminotransferase 13 U/L (0-31); Alkaline Phosphatase 70 U/L (39-117); Anion Gap 9 (12-20); Aspartate Amino Transferase 19 U/L (5-31); Bilirubin Total 0.7 mg/dL (0.0-1.0); Blood Urea Nitrogen 10 mg/dL (9-16); Calcium 8.6 mg/dL (8.4-10.2); Carbon Dioxide 26 mmol/L (22-29); Chloride 107 mmol/L (96-108); Cholesterol 194 mg/dL (<200); Estimated Glomerular Filt Rate > 60; Glucose Random 90 mg/dL (60-115); HDL Cholesterol 46 mg/dL (>40); LDL Cholesterol Calculated 133 mg/dL (<100); Potassium 3.8 mmol/L (3.3-5.1); Sodium 138 mmol/L (135-145); Total Protein 7.3 g/dL (6.5-8.0); Triglycerides 78 mg/dL (<150)
== END 2024-08-11 11:19 | disposition home or self-care (01) ==
LOC: HO.LAB 11:18
PROVIDERS: PCP Internal Medicine; Visit Provider Internal Medicine
DX: E78.00 Pure hypercholesterolemia, unspecified (principal); I10 Essential (primary) hypertension; Z68.31 Body mass index [BMI] 31.0-31.9, adult; Z91.199 Patient's noncompliance with other medical treatment and regimen due to unspecified reason
CPT/HCPCS: 36415; 80053; 80061; 85025

== ENCOUNTER 2024-08-16 10:20 | Outpatient (REF) | payer OTHER, SELFPAY ==
--- NOTE | ~2024-08-16 | MM_ITS ---
EXAMINATION: MM SCREENING DIGITAL BREAST TOMOSYNTHESIS, BILATERAL CLINICAL INFORMATION: Screening. Asymptomatic. COMPARISON: Mammography: Comparison is made with available priors TECHNIQUE: Digital breast mammography with tomosynthesis is performed in both the craniocaudal and mediolateral oblique views along with computer-aided detection (CAD). FINDINGS: The breasts are heterogeneously dense, which may obscure small masses (ACR BI-RADS breast composition Category c). Postsurgical changes in the left breast are stable. There are no significant masses, abnormal calcifications, or other abnormalities. MM/MM tomosynthesis screening BI IMPRESSION: No mammographic evidence of malignancy. ASSESSMENT: BI-RADS BI-RADS 2 - Benign Findings RECOMMENDATION: Routine annual mammography screening. 1 year F/U This examination should not preclude the clinical evaluation of a suspicious palpable abnormality. This patient's information was entered into a reminder system with a target due date for their next mammogram. Electronically signed by: Violeta Gutierrez DO 08/22/2024 04:54 PM JULIAN
== END 2024-08-16 10:21 | disposition home or self-care (01) ==
LOC: HO.MAMMO 10:20
PROVIDERS: PCP Internal Medicine; Visit Provider Internal Medicine
DX: Z12.31 Encounter for screening mammogram for malignant neoplasm of breast (principal)
CPT/HCPCS: 77063; 77067

== ENCOUNTER → 2024-08-16 11:15 | Outpatient (BNV) | payer OTHER, SELFPAY | PROVIDERS: PCP Internal Medicine; Visit Provider Internal Medicine | DX: Z12.31 Encounter for screening mammogram for malignant neoplasm of breast (principal) | CPT/HCPCS: 77063; 77067 ==

== ENCOUNTER 2024-09-07 09:41 | Outpatient (AMB) | payer OTHER, SELFPAY ==
--- NOTE | 2024-09-07 09:47 | A.OFFVIS_ITS ---
Vital Signs 09/07/24 09:50 09/07/24 09:52 Height 4 ft 10 in 4 ft 10 in Weight 147 lb 146 lb BMI 30.7 30.5 BP 118/61 Blood Pressure Location Lt brachial Lt brachial Position Sitting Sitting Pulse 56 Intake Visit Reasons: Follow up Hemorrhoids Intake Note: Patient yearly follow up for hemorrhoids. Patient cc : after hemorrhoids gone she still feel a little piece out, denies any other GI issues for today visit. 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 Had a painful hemorrhoid in May, 2024 and used hemorrhoid wipes with resolution of pain. Still feels something in the anal area. Added salads, cashew and peanuts Admitted to ICU after she had an abnormal EKG in 1998 Had a stress test Seen by Cardiology at [facility] and diagnosed with LBBB Offered cardiac cath versus medications and opted for medications Denies any recent cardiac issues Colonoscopy results were reviewed with the patient She denies known family hx of colon polyps or cancer. Pt states she has changed to a more healthy diet - takes vegetables, beans and white meat. Patient complains of postprandial bloating - usually takes oatmeal, eggs and coffee and sometimes pancakes for breakfast PAST VISITS: Patient denies symptoms of heartburn, dysphagia, nausea, vomiting, change in appetite or weight. Notes post nasal drip due to sinusitis. Denies recent change in bowel habits, constipation, diarrhea, black stools or rectal bleeding. Notes rectal discomfort due to prolapsed hemorrhoids. Patient denies major cardiac or pulmonary problems, loud snoring or sleep apnea Denies problems with anesthesia in the past. Denies being on chronic anticoagulation. Uses aspirin once in a while for fibromyalgia Patient denies history of smoking On disabilty and lives alone Has four children, 13 GK and 19 GGK Patient denies known family history of colon polyps, colon cancer or other GI malignancies. Dad had renal cancer, mom had hypertension, diabetes and hyperlipidemia. LABS IN [facility]: reviewed ENDOSCOPIC STUDIES: 07/30/23 COLONOSCOPY SHOWED:One small tubular adenoma was removed Moderate diverticulosis seen in the entire colon Small hemorrhoids on retroflexed exam. Plan: Repeat Colonoscopy interval based on path results - in 5 years if polyps are adenomatous and due to a history of adenomatous colon polyps 09/2017: Colonoscopy was performed by Dr. Robert:In the appendiceal area, there was a texture change. This area was biopsied. No true polyp was seen. Thescope was slowly withdrawn. There were 2 polyps identified in the range of 60 cm felt to be in the descending colon, just below the splenic flexure. These were removed excisionally with the cold biopsy forceps. The larger one had slight oozing. Reapposed the edges of the polypectomy site with a resolution clip. The scope continually withdrawn. Anorectal verge was clear. BIOPSIES SHOWED: A. Colon mucosa with a benign intramucosal lymphoid aggregate. B. Tubular adenomas 01/15/2009 - 2 tubular adenomas were removed 04/02/2011 - 2 tubular adenomas were removed 05/2014 1 diminutive tubular adenomas removed PAST GI HISTORY BY REVIEW OF MEDICAL RECORDS: 07/2017 pt was seen by Dr. Robert:High risk colon cancer screening--Hx of multiple tubular adenomas. Patient has been healthy. She does admit to a lot of family stressors. Her has also developed a heart problem. She has no GI complaints. She moves her bowels regularly. She has no pains. 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) Alcohol intake: never Patient Tobacco Use Status: Never used Tobacco Review of Systems Const Denies fever(s), Denies headache(s) and Denies weight loss Eyes Denies eye discharge and Denies irritation ENT Reports Normal hearing present, Denies dysphagia, Denies dizziness and Denies headache(s) Card Denies chest pain, Denies leg edema and Denies dyspnea on exertion Resp Denies cough, Denies dyspnea on exertion and Denies wheezing GI Denies abdominal pain, Denies change in bowel habits, Denies dysphagia and Denies heartburn Denies difficulty voiding, Denies dysuria and Reports other (Frequent urination) Musc Denies back pain, Reports arthralgias and Reports other (Arthritis) Skin/Breast Denies pruritus, Reports rash and Denies jaundice Neuro Reports Normal hearing present, Denies Abnormal speech present, Denies dizziness, Denies headache(s) and Denies seizure-like activity Psych Denies anxiety, Denies depression and Denies panic attacks Endo Denies cold intolerance, Denies flushing and Denies heat intolerance Harris/Lymph Denies easy bleeding and Denies easy bruising Aller/Immun Denies wheezing Physical Exam Vital Signs: Last Vital Signs Pulse 56 09/07/24 09:52 BP 118/61 09/07/24 09:52 BMI result Body Mass Index 30.5 Const General: healthy appearing and no acute distress Nutritional Appearance: obese Orientation/consciousness: patient oriented x3 Limitations: no limitations HEENT Head: Yes normal to inspection Ears: hearing grossly normal bilaterally Eyes Sclerae: sclerae normal Pupils: Equal, round and reactive pupils present Neck Neck: Yes normal visual inspection Chest Chest palpation & inspection: normal inspection of the chest Resp Effort & Inspection: normal respiratory effort Auscultation: clear to auscultation bilaterally Cardio Palpation: normal PMI Rate: regular rate Rhythm: regular rhythm Heart sounds: S1 normal heart sound present, S2 normal heart sound present and no murmurs GI Palpation (GI): Soft to palpation, nontender and No hepatosplenomegaly present Auscultation: normal bowel sounds Rectal Exam - Female: Visual inspection abnormal (atif-anal skin tags) Skin General skin exam: no rashes or lesions noted Neuro General: patient oriented x3, gait normal and moves all extremities Cranial nerves: Yes Equal, round and reactive pupils present and Yes Normal hearing present Speech: No Abnormal speech present Psych Appearance: grossly normal Mental Status: mental status grossly normal Assessment & Plan Assessment & Plan (1) History of adenomatous polyp of colon: Comment: 07/30/23 colonoscopy showed diverticulosis and a small tubular adenoma was removed Repeat colonoscopy was advised in 5 years (due 07/2028) Code(s): Z86.010 - Personal history of colon polyps Category: Medical (2) Hemorrhoids that prolapse with straining and require manual replacement back inside anal canal: Code(s): K64.2 - Third degree hemorrhoids Category: Medical (3) Postprandial abdominal bloating: Code(s): R14.0 - Abdominal distension (gaseous) Category: Medical Plan 74 YF with a history of colon polyps here to discuss colonoscopy results Last colonoscopy was performed by Dr Robert in 07/2018 and a 5 yr FU was advised. She was prescribed hydrocortisone cream for hemorrhoids. 07/30/23 colonoscopy showed diverticulosis and a small tubular adenoma was removed Repeat colonoscopy was advised in 5 years (due 07/2028) 08/12/23 Patient complains of postprandial bloating - usually takes oatmeal, eggs and coffee and sometimes pancakes for breakfast Patient was advised to start probiotics daily (pt reports taking Activia yogurt and Kumbucha) 09/07/24 Had a painful hemorrhoid in May, 2024 and used hemorrhoid wipes with resolution of pain. Still feels something in the anal area - perianal skin tag on inspection. Pt was reassured and advised advised to use Sitz baths and hydrocortisone cream p.r.n. for anal/rectum She is due for repeat colonoscopy in 07/2028 Follow-up appointment in 6 months Coding Level of Care Code Est Pt Level 4 (37094) Diagnoses History of adenomatous polyp of colon Z86.010 Hemorrhoids that prolapse with straining and require manual replacement back inside anal canal K64.2 Postprandial abdominal bloating R14.0 Time Spent (min) 24
[2024-09-07 09:50] VITALS: BMI 30.7
[2024-09-07 09:52] VITALS: BP 118/61; PULSE 56; BMI 30.5
== END 2024-09-07 10:19 | disposition home or self-care (01) ==
PROVIDERS: PCP Internal Medicine; Visit Provider Internal Medicine Gastroenterology
DX: Z86.0100 Personal history of colon polyps, unspecified (principal); K64.2 Third degree hemorrhoids; R14.0 Abdominal distension (gaseous)
CPT/HCPCS: 99214

== ENCOUNTER → 2024-09-07 09:41 | Outpatient (BNVA) | payer OTHER, SELFPAY | PROVIDERS: PCP Internal Medicine; Visit Provider Internal Medicine Gastroenterology | DX: K64.9 Unspecified hemorrhoids (principal); K64.2 Third degree hemorrhoids; R14.0 Abdominal distension (gaseous); Z86.0100 Personal history of colon polyps, unspecified | CPT/HCPCS: 99212 ==

== ENCOUNTER 2025-02-22 10:34 | Outpatient (REF) | payer OTHER, SELFPAY ==
[2025-02-22 11:55] LABS: Alanine Aminotransferase 13 U/L (0-31); Albumin Level 4.0 g/dL (3.5-5.0); Alkaline Phosphatase 72 U/L (39-117); Anion Gap 10 (12-20); Aspartate Amino Transferase 19 U/L (5-31); Blood Urea Nitrogen 13 mg/dL (9-16); Calcium 8.7 mg/dL (8.4-10.2); Carbon Dioxide 28 mmol/L (22-29); Chloride 106 mmol/L (96-108); Cholesterol 183 mg/dL (<200); Estimated Glomerular Filt Rate > 60; HDL Cholesterol 46 mg/dL (>40); Potassium 3.9 mmol/L (3.3-5.1); Sodium 140 mmol/L (135-145); Total Protein 7.0 g/dL (6.5-8.0); Triglycerides 83 mg/dL (<150)
== END 2025-02-22 10:35 | disposition home or self-care (01) ==
LOC: HO.LAB 10:34
PROVIDERS: PCP Internal Medicine; Visit Provider Internal Medicine
DX: I10 Essential (primary) hypertension (principal); H93.13 Tinnitus, bilateral; E78.00 Pure hypercholesterolemia, unspecified; Z91.199 Patient's noncompliance with other medical treatment and regimen due to unspecified reason
CPT/HCPCS: 36415; 80053; 80061

== ENCOUNTER 2025-03-01 13:14 | Outpatient (AMB) | payer OTHER, SELFPAY ==
--- NOTE | 2025-03-01 13:17 | MHC.OFFVIS ---
Vital Signs 03/01/25 13:33 Height 4 ft 10 in Weight 145 lb 8.081 oz BMI 30.4 BP 124/60 Blood Pressure Location Lt radial Position Sitting Pulse 66 Intake Visit Reasons: 6 mo hemmoroids Intake Note: Haley presents in the office as a 6 month follow up for hemorrhoids. CC: She states that she is feeling good and not having any concerns at this time. Only little concern of pressure in her forehead the past week. Stenciler Required: No Allergies No Known Allergies Allergy (Verified 03/01/25 13:45) Medication List - Last Reconciled 03/01/25 by Vidal Calderon MD diphenhydramine HCl (Banophen) 25 mg PO BEDTIME fluticasone propionate 50 mcg/actuation 1 spray intranasal DAILY hydrocortisone 2.5% 1 appl SC BID-QID PRN 30 days ibuprofen 600 mg PO TID PRN Lactobacillus rhamnosus GG (Culturelle) 1 cap PO DAILY 30 days losartan-hydrochlorothiazide 100-12.5 mg 1 tab PO DAILY meclizine 12.5 mg PO TID PRN rosuvastatin 20 mg PO BEDTIME triamcinolone acetonide 0.5% appl topical HPI HPI 6 mo hemmoroids: Details: GI clinic visit for this 74 YF with a history of colon polyps and hemorrhoids for FU TODAY'S VISIT: CC: She states that she is feeling good and not having any concerns at this time. Only little concern of pressure in her forehead the past week. 74-year-old female presenting with nighttime leg pain. She describes this pain as intermittent, noting that it occasionally awakens her from sleep but not on a nightly basis. She observes this disturbance has increased in frequency recently. The pain originates from the abdominal area and radiates down to her legs and is occasionally associated with a sensation of bowel urgency, though not consistently resulting in a bowel movement, possibly related to gas. The patient previously experienced gastric bloating, now improved with regular use of probiotics and yogurt. She consumes a diet rich in fruits, vegetables, and nuts, having reduced her intake of rice, resulting in a weight loss of approximately six pounds. The patient reports a dietary intake that includes a substantial amount of fruits, vegetables, nuts, and seeds. She has decreased her consumption of rice, driven by dietary modifications. The patient uses probiotics consistently and consumes yogurt, which she reports helps maintain her digestive health. She has achieved a weight loss of six pounds through these dietary changes. PAST VISITS: Denies recent change in BMs. Had a painful hemorrhoid in May, 2024 and used hemorrhoid wipes with resolution of pain. Still feels something in the anal area. Added salads, cashew and peanuts Admitted to ICU after she had an abnormal EKG in 1998 Had a stress test Seen by Cardiology at [facility] and diagnosed with LBBB Offered cardiac cath versus medications and opted for medications Denies any recent cardiac issues Colonoscopy results were reviewed with the patient She denies known family hx of colon polyps or cancer. Pt states she has changed to a more healthy diet - takes vegetables, beans and white meat. Patient complains of postprandial bloating - usually takes oatmeal, eggs and coffee and sometimes pancakes for breakfast Patient denies symptoms of heartburn, dysphagia, nausea, vomiting, change in appetite or weight. Notes post nasal drip due to sinusitis. Denies recent change in bowel habits, constipation, diarrhea, black stools or rectal bleeding. Notes rectal discomfort due to prolapsed hemorrhoids. Patient denies major cardiac or pulmonary problems, loud snoring or sleep apnea Denies problems with anesthesia in the past. Denies being on chronic anticoagulation. Uses aspirin once in a while for fibromyalgia Patient denies history of smoking On disabilty and lives alone Has four children, 13 GK and 19 GGK Patient denies known family history of colon polyps, colon cancer or other GI malignancies. Dad had renal cancer, mom had hypertension, diabetes and hyperlipidemia. LABS IN [facility]: reviewed ENDOSCOPIC STUDIES: 07/30/23 COLONOSCOPY SHOWED:One small tubular adenoma was removed Moderate diverticulosis seen in the entire colon Small hemorrhoids on retroflexed exam. Plan: Repeat Colonoscopy interval based on path results - in 5 years if polyps are adenomatous and due to a history of adenomatous colon polyps 09/2017: Colonoscopy was performed by Dr. Robert:In the appendiceal area, there was a texture change. This area was biopsied. No true polyp was seen. Thescope was slowly withdrawn. There were 2 polyps identified in the range of 60 cm felt to be in the descending colon, just below the splenic flexure. These were removed excisionally with the cold biopsy forceps. The larger one had slight oozing. Reapposed the edges of the polypectomy site with a resolution clip. The scope continually withdrawn. Anorectal verge was clear. BIOPSIES SHOWED: A. Colon mucosa with a benign intramucosal lymphoid aggregate. B. Tubular adenomas 01/15/2009 - 2 tubular adenomas were removed 04/02/2011 - 2 tubular adenomas were removed 05/2014 1 diminutive tubular adenomas removed PAST GI HISTORY BY REVIEW OF MEDICAL RECORDS: 07/2017 pt was seen by Dr. Robert:High risk colon cancer screening--Hx of multiple tubular adenomas. Patient has been healthy. She does admit to a lot of family stressors. Her has also developed a heart problem. She has no GI complaints. She moves her bowels regularly. She has no pains. 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) Alcohol intake: never Patient Tobacco Use Status: Never used Tobacco Review of Systems Const All systems reviewed & are unremarkable except as noted in HPI and below ENT Reports Normal hearing present Neuro Reports Normal hearing present and Denies Abnormal speech present Physical Exam Vital Signs: Last Vital Signs Pulse 66 03/01/25 13:33 BP 124/60 03/01/25 13:33 BMI result Body Mass Index 30.4 Const General: healthy appearing and no acute distress Nutritional Appearance: obese Orientation/consciousness: patient oriented x3 Limitations: no limitations HEENT Head: Yes normal to inspection Ears: hearing grossly normal bilaterally Eyes Sclerae: sclerae normal Pupils: Equal, round and reactive pupils present Neck Neck: Yes normal visual inspection Chest Chest palpation & inspection: normal inspection of the chest Resp Effort & Inspection: normal respiratory effort Auscultation: clear to auscultation bilaterally Cardio Palpation: normal PMI Rate: regular rate Rhythm: regular rhythm Heart sounds: S1 normal heart sound present, S2 normal heart sound present and no murmurs GI Palpation (GI): Soft to palpation, nontender and No hepatosplenomegaly present Auscultation: normal bowel sounds Rectal Exam - Female: Visual inspection abnormal (atif-anal skin tags) Skin General skin exam: no rashes or lesions noted Neuro General: patient oriented x3, gait normal and moves all extremities Cranial nerves: Yes Equal, round and reactive pupils present and Yes Normal hearing present Speech: No Abnormal speech present Psych Appearance: grossly normal Mental Status: mental status grossly normal Assessment & Plan Assessment & Plan (1) History of adenomatous polyp of colon: Comment: 07/30/23 colonoscopy showed diverticulosis and a small tubular adenoma was removed Repeat colonoscopy was advised in 5 years (due 07/2028) Code(s): Z86.010 - Personal history of colon polyps Category: Medical (2) Hemorrhoids that prolapse with straining and require manual replacement back inside anal canal: Code(s): K64.2 - Third degree hemorrhoids Category: Medical (3) Postprandial abdominal bloating: Code(s): R14.0 - Abdominal distension (gaseous) Category: Medical Plan 74 YF with a history of colon polyps here to discuss colonoscopy results Last colonoscopy was performed by Dr Robert in 07/2018 and a 5 yr FU was advised. She was prescribed hydrocortisone cream for hemorrhoids. 07/30/23 colonoscopy showed diverticulosis and a small tubular adenoma was removed Repeat colonoscopy was advised in 5 years (due 07/2028) 08/12/23 Patient complains of postprandial bloating - usually takes oatmeal, eggs and coffee and sometimes pancakes for breakfast Patient was advised to start probiotics daily (pt reports taking Activia yogurt and Kumbucha) 09/07/24 Had a painful hemorrhoid in May, 2024 and used hemorrhoid wipes with resolution of pain. Still feels something in the anal area - perianal skin tag on inspection. Pt was reassured and advised advised to use Sitz baths and hydrocortisone cream p.r.n. for anal/rectum 03/01/25 abdominal bloating has improved with regular use of probiotics and yogurt Denies recent rectal bleeding. She is due for repeat colonoscopy in 07/2028 Follow-up appointment in 12 monthS Coding Level of Care Code Est Pt Level 3 (85573) Diagnoses History of adenomatous polyp of colon Z86.010 Hemorrhoids that prolapse with straining and require manual replacement back inside anal canal K64.2 Postprandial abdominal bloating R14.0 Time Spent (min) 16
[2025-03-01 13:33] VITALS: BP 124/60; PULSE 66; BMI 30.4
== END 2025-03-01 14:14 | disposition home or self-care (01) ==
LOC: HO.HGI 13:14
PROVIDERS: PCP Internal Medicine; Visit Provider Internal Medicine Gastroenterology
DX: Z86.0100 Personal history of colon polyps, unspecified (principal); K64.2 Third degree hemorrhoids; R14.0 Abdominal distension (gaseous)
CPT/HCPCS: 99213

== ENCOUNTER → 2025-03-01 13:14 | Outpatient (BNVA) | payer OTHER, SELFPAY | PROVIDERS: PCP Internal Medicine; Visit Provider Internal Medicine Gastroenterology | DX: K64.2 Third degree hemorrhoids (principal); R14.0 Abdominal distension (gaseous); Z86.0100 Personal history of colon polyps, unspecified; Z71.2 Person consulting for explanation of examination or test findings | CPT/HCPCS: 99212 ==

== ENCOUNTER 2025-03-20 14:54 | Outpatient (AMB) | payer OTHER, SELFPAY ==
--- NOTE | 2025-03-20 15:17 | MHC.OFFVIS ---
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 States her finger is catching and locking, this started approx 3 months ago and has not improved. Reports soreness at her palm area 4th MCP and pain when making a tight fist. Patient would like to discuss injection vs surgical intervention. She is also having mild numbness and tingling occasionally at night. No EMG done. 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 She complains of painful locking & catching of her left ring finger, onset ~3 months ago. She denies any prior treatment options. She compalins of occasional numbness & tingling in her hands, but says this happens ~1-2 times a month and is not particularly bothersome [facility] Medical History Hx of cardiac murmur Fibromyalgia Elevated cholesterol HTN (hypertension) Surgical History Hx of colonoscopy Hx of tonsillectomy Hx of section Hx of hysterectomy Hx of tubal ligation Social History Household Members: None Housing: Apartment Are you a primary administrator health care facility to a significant other at home: No Do you presently have visiting nurse or other home services: Yes ([employer] DBA M-F) Alcohol intake: never Patient Tobacco Use Status: Never used Tobacco Review of Systems Const All systems reviewed & are unremarkable except as noted in HPI and below Physical Exam Vital Signs: BMI result Body Mass Index 30.3 Const General: cooperative, healthy appearing and no acute distress Orientation/consciousness: patient oriented x3 HEENT Head: Yes normocephalic and Yes atraumatic Eyes EOM: EOMs intact bilaterally Resp Effort & Inspection: normal respiratory effort and able to speak in complete sentences Cardio Jugular venous distension: no JVD Skin General skin exam: turgor normal Rashes: no rashes Neuro General: patient oriented x3 Extrem Other: Evaluation of Left Upper Extremity: The patient is alert, oriented, and in no acute distress Neuro: Median, Ulnar, Radial nerves motor and sensory intact and sensation is normal to the tips of all digits Vascular: Cap refill brisk ROM: She can make a fist and extend all her digits Visible & palpable locking & catching of the ring finger Tender over the ring finger a1 vivienne Skin: No lacerations or abrasions. General: No Ecchymosis. No Erythema or evidence of infection. Psych Appearance: grossly normal Affect: normal affect Attitude: cooperative Office Procedures AMB Fracture Care Details: No fracture, injection Fracture Billing Code: Fracture Billing Code Assessment & Plan Assessment & Plan (1) Trigger ring finger of left hand: Code(s): M65.342 - Trigger finger, left ring finger Category: Medical Plan Assessment & Plan: 1. Left ring finger trigger finger I educated her about this condition I discussed operative and non-operative treatment options The patient would like to proceed with an injection. Injection #1: The risks and benefits of a steroid injection including but not limited to risk of damage to blood vessels, nerves, tendons, infection, skin bleaching, failure to improve symptoms, increased pain, and possible need for further injections or other intervention were discussed with the patient and the patient wishes to proceed with the steroid injection. Once consent was obtained, I sterilely prepped the area over the A1 vivienne of the flexor tendon sheath of the Left ring finger. I then injected the flexor tendon sheath with a combination of 1 mL of dexamethasone (4mg/ml), and 1% lidocaine. The patient tolerated the procedure well with no complications. If the patient continues to have locking and catching 4-6 weeks following this injection, they may call to schedule appointment to discuss alternative treatment options Follow-up prn Scribed for Sandy Sainz MD by Moe Avina medical certification specialist, on 03/20/25 at 3:45 PM, EST. Coding Level of Care Code New Pt Level 4 (91468) Diagnoses Trigger ring finger of left hand M65.342 CPT Codes Fracture Care - Fracture Billing Code: Fracture Billing Code ([id number])
[2025-03-20 15:23] VITALS: BMI 30.3
== END 2025-03-20 16:11 | disposition home or self-care (01) ==
LOC: HO.HOS 14:54
PROVIDERS: PCP Internal Medicine; Visit Provider Orthopaedic Surgery
DX: M65.342 Trigger finger, left ring finger (principal)
CPT/HCPCS: 20550; 99204

== ENCOUNTER → 2025-03-20 14:54 | Outpatient (BNVA) | payer OTHER, SELFPAY | PROVIDERS: PCP Internal Medicine; Visit Provider Orthopaedic Surgery | DX: M65.342 Trigger finger, left ring finger (principal) | CPT/HCPCS: 20550; 99202; J1100; J2003 ==